=== PATIENT | male | born 1995 | race Hispanic/Latino ===

== ENCOUNTER 2020-11-18 08:46 | Inpatient (IN) | payer OTHER, SELFPAY ==
[2020-11-18 09:57] LABS: Hemoglobin 16.5 g/dL (14.0-18.0); Mean Corpuscular HGB CONC 33.8 g/dL (32.0-36.0); Mean Corpuscular Hemoglobin 29.7 pg (27.0-31.0); Mean Corpuscular Volume 87.7 fL (78.0-98.0); Mean Platelet Volume 8.7 fL (7.4-10.4); Platelet Count 209 thou/uL (130-400); RBC Distribution Width 11.7 % (11.5-14.5); Red Blood Cell (RBC) Count 5.56 mill/uL (4.70-6.10); White Blood Cell (WBC) Count 14.4 thou/uL (4.8-10.8)
[2020-11-18 10:16] LABS: #Monocytes 1.7 thou/uL (0.11-0.59); #Neutrophils 11.7 thou/uL (1.40-6.50); %Basophils 0.1 % (0.0-1.0); %Eosinophils 0.1 % (0.0-10.0); %Lymphocytes 6.8 % (21.0-51.0); %Monocytes 11.4 % (0.0-10.0); %Neutrophils 81.7 % (42.0-75.0); Band 20 % (5-11); Lymphocytes 8 % (21-51); MDiff Complete? YES; Neutrophil 58 % (42-75); RBC Morphology Normal; Reactive Lymphocytes 14 % (0-10)
[2020-11-18] MEDS ORDERED: Azithromycin 500 MG VIAL ONE (10:22)
[2020-11-18 10:24] LABS: ALT (SGPT) 75 U/L (8-55); AST (SGOT) 60 U/L (5-34); Albumin 3.9 g/dL (3.5-5.0); Alkaline Phosphatase 40 U/L (40-110); Anion Gap 14 mmol/L (10-20); BUN (Urea Nitrogen) 14 mg/dL (8.9-20.6); Bilirubin, Total 0.6 mg/dL (0.2-1.2); Calc. Creatinine Clearance 0 mL/min (70-130); Carbon Dioxide 28 mmol/L (22-29); Chloride 98 mmol/L (98-107); Globulin 3.7 g/dL (2.4-3.5); Glucose 126 mg/dL (70-105); Potassium 3.8 mmol/L (3.5-5.1); Protein, Total 7.6 g/dL (6.0-8.3); Sodium 136 mmol/L (136-145)
[2020-11-18] MEDS ORDERED: Acetaminophen 650 MG Suppository PR PRN (14:38)
[2020-11-18] MEDS ORDERED: Ondansetron ODT 4 MG TAB PO PRN (14:38)
[2020-11-18] MEDS ORDERED: Ondansetron PF 4 MG/2 ML Vial IVP PRN (14:38)
[2020-11-18] MEDS ORDERED: Acetaminophen 325 MG TAB PO PRN (14:38)
[2020-11-18] MEDS ORDERED: Guaifenesin DM 100-10/5 ML UDCUP PO PRN (14:38)
[2020-11-18] MEDS ORDERED: cefTRIAXone Sodium 1 MG in Syringe 0 ML IVPB SCH (14:45)
[2020-11-18] MEDS ORDERED: cefTRIAXone\\ROCEPHIN 1 GM in Sodium Chloride 0.9% 100 ML IVPB SCH (15:00)
[2020-11-18 15:49] LABS: Troponin I Less than 0.010 ng/mL (< 0.028)
[2020-11-18 16:08] VITALS: BMI 30.8
[2020-11-18 17:24] LABS: Bacteria/HPF None Seen HPF (None Seen); Bilirubin Negative (Negative); Blood, Urine Negative (Negative); Clarity Clear (Clear); Glucose, Urine (Dipstick) Normal (Negative); Ketone, Urine Negative (Negative); Leukocyte Negative Leu/uL (Negative); Nitrite Negative (Negative); Protein, Urine (Dipstick) 20 mg/dL (Neg-Trace); RBC/HPF 0-3 HPF (0-3); Specific Gravity, Urine 1.021 (1.002-1.036); Squamous Epithelial None Seen HPF (0-3); Urobilinogen Normal mg/dL (Less than 2); WBC/HPF 0-3 HPF (0-3); pH, Urine 7.5 (5.0-9.0)
[2020-11-18 17:29] LABS: Urine Culture Reflex No No
[2020-11-18] MEDS: Enoxaparin Sodium 40 MG/0.4 ML SYRINGE SC SCH (21:02)
[2020-11-18] MEDS: Dexamethasone 10 MG/ML VIAL SLOW IVP SCH (21:02)
[2020-11-18] MEDS ORDERED: Melatonin 3 MG TAB PO PRN (21:25)
[2020-11-19 04:02] LABS: #Basophils 0.1 thou/uL (0.0-0.2); #Lymphocytes 0.7 thou/uL (1.20-3.40); #Monocytes 0.5 thou/uL (0.11-0.59); #Neutrophils 7.7 thou/uL (1.40-6.50); %Basophils 1.2 % (0.0-1.0); %Eosinophils 0.2 % (0.0-10.0); %Lymphocytes 7.9 % (21.0-51.0); %Monocytes 5.9 % (0.0-10.0); %Neutrophils 84.8 % (42.0-75.0); Hemoglobin 16.9 g/dL (14.0-18.0); Mean Corpuscular HGB CONC 33.7 g/dL (32.0-36.0); Mean Corpuscular Hemoglobin 29.2 pg (27.0-31.0); Mean Corpuscular Volume 86.6 fL (78.0-98.0); Mean Platelet Volume 8.5 fL (7.4-10.4); Platelet Count 225 thou/uL (130-400); RBC Distribution Width 11.6 % (11.5-14.5); Red Blood Cell (RBC) Count 5.79 mill/uL (4.70-6.10); White Blood Cell (WBC) Count 9.1 thou/uL (4.8-10.8)
[2020-11-19 04:11] LABS: ALT (SGPT) 60 U/L (8-55); AST (SGOT) 29 U/L (5-34); Albumin 3.4 g/dL (3.5-5.0); Alkaline Phosphatase 37 U/L (40-110); Anion Gap 14 mmol/L (10-20); BUN (Urea Nitrogen) 13 mg/dL (8.9-20.6); Bilirubin, Total 0.6 mg/dL (0.2-1.2); Calc. Creatinine Clearance 212 mL/min (70-130); Calcium 8.7 mg/dL (7.8-10.44); Carbon Dioxide 25 mmol/L (22-29); Chloride 101 mmol/L (98-107); Globulin 3.3 g/dL (2.4-3.5); Glucose 156 mg/dL (70-105); Potassium 4.2 mmol/L (3.5-5.1); Protein, Total 6.7 g/dL (6.0-8.3); Sodium 136 mmol/L (136-145)
[2020-11-19] MEDS: Enoxaparin Sodium 40 MG/0.4 ML SYRINGE SC SCH ×2 (07:55→20:39)
[2020-11-19] MEDS: Cholecalciferol (Vitamin D3) 400 UNITS TAB PO SCH (07:55)
[2020-11-19] MEDS: Ascorbic Acid 500 mg Chewable Tablet PO SCH (07:55)
[2020-11-19] MEDS: Zinc Sulfate 220 MG CAP PO SCH (07:55)
[2020-11-19] MEDS ORDERED: Enoxaparin Sodium 40 MG/0.4 ML SYRINGE SC SCH (09:00)
[2020-11-19] MEDS: Dexamethasone 10 MG/ML VIAL SLOW IVP SCH (09:15)
[2020-11-19] MEDS ORDERED: Azithromycin 500 MG in Sodium Chloride 0.9% 250 ML 250 ML IVPB SCH (10:00)
[2020-11-19] MEDS ORDERED: REMDESIVIR 200 MG in Sodium Chloride 0.9% 250 ML 210 ML IV SCH ×2 (10:15→17:00)
[2020-11-19] MEDS ORDERED: Melatonin 3 MG TAB PO SCH (10:15)
[2020-11-19] MEDS ORDERED: REMDESIVIR 100 MG in Sodium Chloride 0.9% 250 ML 230 ML IV SCH (22:00)
[2020-11-20] MEDS: Ascorbic Acid 500 mg Chewable Tablet PO SCH (08:52)
[2020-11-20] MEDS: Enoxaparin Sodium 40 MG/0.4 ML SYRINGE SC SCH ×2 (08:52→21:07)
[2020-11-20] MEDS: Cholecalciferol (Vitamin D3) 400 UNITS TAB PO SCH (08:52)
[2020-11-20] MEDS: Zinc Sulfate 220 MG CAP PO SCH (08:52)
[2020-11-20] MEDS: Dexamethasone 10 MG/ML VIAL SLOW IVP SCH (08:53)
[2020-11-20] MEDS: REMDESIVIR 100 MG in Sodium Chloride 0.9% 250 ML 230 ML IV SCH (11:15)
[2020-11-21] MEDS: REMDESIVIR 100 MG in Sodium Chloride 0.9% 250 ML 230 ML IV SCH (08:49)
[2020-11-21] MEDS: Zinc Sulfate 220 MG CAP PO SCH (08:50)
[2020-11-21] MEDS: Ascorbic Acid 500 mg Chewable Tablet PO SCH (08:50)
[2020-11-21] MEDS: Cholecalciferol (Vitamin D3) 400 UNITS TAB PO SCH (08:50)
[2020-11-21] MEDS: Dexamethasone 10 MG/ML VIAL SLOW IVP SCH (08:50)
[2020-11-21] MEDS: Enoxaparin Sodium 40 MG/0.4 ML SYRINGE SC SCH (14:42)
[2020-11-21 17:37] VITALS: BP 124/74; TEMP 98.2
== END 2020-11-21 18:30 | disposition home or self-care (01) | DRG 177 ==
LOC: ERS 08:46 → 2SE 14:32 → OBSVTOIN 11-19 18:13
PROVIDERS: ADMIT Family Medicine; ATTEND Internal Medicine
PROC: 8E0ZXY6 Isolation (ICD-10-PCS; principal; 2020-11-19)
PROC: XW033E5 Introduction of Remdesivir Anti-infective into Peripheral Vein, Percutaneous Approach, New Technology Group 5 (ICD-10-PCS; 2020-11-19)
DX: U07.1 COVID-19 (principal); J12.82 Pneumonia due to coronavirus disease 2019; J96.01 Acute respiratory failure with hypoxia
CPT/HCPCS: 36415; 71045; 80053; 81001; 82728; 83605; 83690; 84484; 85025; 85379; 86140; 87040; 93005; 96365; 96367; 96372; 96375; 96376; G0378; J0456; J0696; J1100; J1650; J3490; J7050